=== PATIENT | male | born 1985 | race Two or more races ===

== ENCOUNTER → 2024-01-12 | Outpatient (REF) | payer OTHER | LOC: M SFHCDERM 07:54 | PROVIDERS: ATTEND Physician Assistant | DX: C44.311 Basal cell carcinoma of skin of nose (principal) ==

== ENCOUNTER → 2024-05-11 | Outpatient (REF) | payer OTHER | LOC: M SFHCDERM 17:39 | PROVIDERS: ATTEND Dermatology | DX: Z48.02 Encounter for removal of sutures (principal) ==

== ENCOUNTER → 2025-05-18 | Outpatient (CLI) | payer OTHER | LOC: M OUTALCOH 10:37 | PROVIDERS: ATTEND Psychiatry & Neurology Psychiatry | DX: Z03.89 Encounter for observation for other suspected diseases and conditions ruled out (principal) ==

== ENCOUNTER 2025-05-31 10:53 | Outpatient (RCR) | payer OTHER | END 2025-06-05 | LOC: M OUTALCOH 10:53 | PROVIDERS: ATTEND Psychiatry & Neurology Psychiatry | DX: Z03.89 Encounter for observation for other suspected diseases and conditions ruled out (principal); F17.200 Nicotine dependence, unspecified, uncomplicated ==